=== PATIENT | male | born 1985 | race African-American/Black ===

== ENCOUNTER 2022-01-29 13:12 | Emergency (ER) | payer OTHER, MEDICAID ==
[~2022-01-29] VITALS: Ht 175.3 cm; Wt 85.0 kg
[~2022-01-29 13:12] MED LIST: ARIP20TA2 PO; ASPI-1406 PO; DOXE50CA4 PO; OLAN5TAB74 PO; OMEP20TA23 PO; QPAP PO
[2022-01-29] MEDS ORDERED: ASPIRIN 81MG TABLET PO ONE (15:45)
[2022-01-29] MEDS ORDERED: ACETAMINOPHEN 325MG TABLET PO ONE (15:45)
[2022-01-29] MEDS ORDERED: NITROGLYCERIN 0.4MG TABLET SL SL PRN (15:45)
[2022-01-29 16:19] LABS: BASOPHILS % 0.4 % (0.0-2.0); EOSINOPHILS % 2.9 % (0.0-5.0); HEMATOCRIT. 37.3 % (42.0-52.0); HEMOGLOBIN. 12.4 g/dL (14.0-18.0); LYMPHOCYTES % 28.8 % (20.0-50.0); MEAN CORPUSCULAR HEMOGLOBIN 30.1 pg (28.0-32.0); MEAN CORPUSCULAR VOLUME 90.9 fL (80.0-94.0); MEAN PLATELET VOLUME 7.5 fl (7.4-10.4); MONOCYTES % 7.5 % (2.0-8.0); NEUTROPHILS % 60.4 % (40.0-76.0); PLATELET 427 x1000/uL (130-400); RED BLOOD CELL COUNT 4.11 mill/uL (4.7-6.1); RED CELL DISTRIBUTION WIDTH 14.7 % (11.6-14.6)
[2022-01-29 16:27] LABS: CHLORIDE 105 mEq/L (98-107)
[2022-01-29 16:31] LABS: *AMPHETAMINES SCREEN URINE NEGATIVE (NEGATIVE); *BARBITURATES SCREEN URINE NEGATIVE (NEGATIVE); *BENZODIAZEPINES SCREEN URINE NEGATIVE (NEGATIVE); *COCAINE SCREEN URINE NEGATIVE (NEGATIVE); CANNABINOID URINE SCREEN NEGATIVE (NEGATIVE); METHADONE URINE SCREEN NEGATIVE (NEGATIVE); OPIATES URINE SCREEN NEGATIVE (NEGATIVE); PHENCYCLIDINE URINE SCREEN NEGATIVE (NEGATIVE)
[2022-01-29 16:38] LABS: ETHANOL BLOOD < 10 mg/dL
[2022-01-29 19:15] VITALS: BP 109/79
== END 2022-01-29 19:40 | disposition home or self-care (01) ==
LOC: ER 13:12
DX: R07.9 Chest pain, unspecified (principal); I11.9 Hypertensive heart disease without heart failure; E78.00 Pure hypercholesterolemia, unspecified; Z79.82 Long term (current) use of aspirin; Z87.891 Personal history of nicotine dependence
CPT/HCPCS: 36415; 71045; 73130; 80053; 80305; 80320; 83880; 84484; 85025; 87070; 87430; 93005; 99285; G0480

== ENCOUNTER 2022-03-19 00:48 | Inpatient (IN) | payer OTHER, MEDICAID ==
[~2022-03-19] VITALS: Ht 175.3 cm; Wt 77.1 kg
[2022-03-19] MEDS ORDERED: ACETAMINOPHEN 500MG TABLET PO ONE (01:30)
[2022-03-19] MEDS ORDERED: CYCLOBENZAPRINE 10MG TABLET PO ONE (01:30)
[2022-03-19 03:49] LABS: CHLORIDE 101 mEq/L (98-107)
[2022-03-19 03:53] LABS: BASOPHILS % 0.4 % (0.0-2.0); EOSINOPHILS % 0.4 % (0.0-5.0); HEMATOCRIT. 38.5 % (42.0-52.0); HEMOGLOBIN. 12.5 g/dL (14.0-18.0); LYMPHOCYTES % 15.6 % (20.0-50.0); MEAN CORPUSCULAR HEMOGLOBIN 29.8 pg (28.0-32.0); MEAN CORPUSCULAR VOLUME 91.7 fL (80.0-94.0); MEAN PLATELET VOLUME 8.4 fl (7.4-10.4); NEUTROPHILS % 74.6 % (40.0-76.0); PLATELET 392 x1000/uL (130-400); RED CELL DISTRIBUTION WIDTH 16.2 % (11.6-14.6)
[2022-03-19] MEDS ORDERED: ACETAMINOPHEN WITH CODEINE 300/30MG TABLET PO ONE (06:00)
[2022-03-19 08:33] VITALS: BP 117/78
[2022-03-19] MEDS ORDERED: NALOXONE HCL 0.4MG/ML VIAL IV PRN (10:30)
[2022-03-19] MEDS: HYDROCODONE/ACETAMINOPHEN 5/325MG TABLET PO PRN ×3 (10:36→22:11)
[2022-03-19 11:32] VITALS: BP 115/80
[2022-03-19] MEDS: ARIPIPRAZOLE 5MG TABLET PO SCH (12:49)
[2022-03-19] MEDS ORDERED: SODIUM BICARBONATE 4% (2.4MEQ) 5ML VIAL IV ONE (13:53)
[2022-03-19] MEDS ORDERED: LIDOCAINE HCL/PF 1% 10 MG/ML 5ML VIAL ONE (13:53)
[2022-03-19 15:30] VITALS: BP 121/81
[2022-03-19] MEDS: OLANZAPINE 5MG TABLET PO SCH (16:11)
[2022-03-19] MEDS ORDERED: CEFTRIAXONE 2 G PREMIX 50 ML IV SCH (16:45)
[2022-03-19] MEDS ORDERED: CEFTRIAXONE 2 G in DEXTROSE 5% WATER 50 ML IV SCH (18:00)
[2022-03-19 20:00] VITALS: BP 117/79
[2022-03-19] MEDS ORDERED: VANCOMYCIN 1500MG in DEXTROSE 5% WATER 250ML IV NR (20:00)
[2022-03-19] MEDS: CEFTRIAXONE 2 G in DEXTROSE 5% WATER 50 ML IV SCH (22:10)
[2022-03-20] VITALS: BP 115/66
[2022-03-20 04:00] VITALS: BP 143/86
[2022-03-20] MEDS ORDERED: VANCOMYCIN 1GM PMX (XELLIA) 200 ML IV SCH (06:00)
[2022-03-20 06:29] LABS: BASOPHILS % 0.3 % (0.0-2.0); HEMATOCRIT. 35.2 % (42.0-52.0); HEMOGLOBIN. 11.9 g/dL (14.0-18.0); LYMPHOCYTES % 10.9 % (20.0-50.0); MEAN CORPUSCULAR HEMOGLOBIN 30.3 pg (28.0-32.0); MEAN CORPUSCULAR VOLUME 89.5 fL (80.0-94.0); MONOCYTES % 7.2 % (2.0-8.0); NEUTROPHILS % 80.6 % (40.0-76.0); PLATELET 426 x1000/uL (130-400); RED BLOOD CELL COUNT 3.93 mill/uL (4.7-6.1); RED CELL DISTRIBUTION WIDTH 16.1 % (11.6-14.6)
[2022-03-20 07:18] LABS: CHLORIDE 97 mEq/L (98-107)
[2022-03-20 07:32] LABS: CREATINE KINASE 44 IU/L (39-308)
[2022-03-20 08:00] VITALS: BP 113/67
[2022-03-20] MEDS: ARIPIPRAZOLE 5MG TABLET PO SCH (09:43)
[2022-03-20] MEDS: VANCOMYCIN 1.25GM PMX (XELLIA) 250 ML IV SCH ×2 (11:04→22:57)
[2022-03-20] MEDS ORDERED: KETOROLAC 15MG/ML VIAL IV PRN (11:45)
[2022-03-20 12:00] VITALS: BP 121/79
[2022-03-20 16:00] VITALS: BP 109/74
[2022-03-20] MEDS: OLANZAPINE 5MG TABLET PO SCH (16:42)
[2022-03-20] MEDS: HYDROCODONE/ACETAMINOPHEN 5/325MG TABLET PO PRN (18:52)
[2022-03-21] MEDS: CEFTRIAXONE 2 G in DEXTROSE 5% WATER 50 ML IV SCH ×2 (00:29→23:03)
[2022-03-21] MEDS: HYDROCODONE/ACETAMINOPHEN 5/325MG TABLET PO PRN ×2 (00:29→08:53)
[2022-03-21 04:00] VITALS: BP 99/57
[2022-03-21 08:00] VITALS: BP 119/71
[2022-03-21 08:42] LABS: BASOPHILS % 0.5 % (0.0-2.0); EOSINOPHILS % 1.7 % (0.0-5.0); HEMATOCRIT. 32.7 % (42.0-52.0); HEMOGLOBIN. 10.8 g/dL (14.0-18.0); LYMPHOCYTES % 11.9 % (20.0-50.0); MEAN CORPUSCULAR HEMOGLOBIN 29.7 pg (28.0-32.0); MEAN CORPUSCULAR VOLUME 89.6 fL (80.0-94.0); MONOCYTES % 8.8 % (2.0-8.0); NEUTROPHILS % 77.1 % (40.0-76.0); PLATELET 475 x1000/uL (130-400); RED BLOOD CELL COUNT 3.65 mill/uL (4.7-6.1)
[2022-03-21] MEDS: ARIPIPRAZOLE 5MG TABLET PO SCH (08:52)
[2022-03-21] MEDS: VANCOMYCIN 1.25GM PMX (XELLIA) 250 ML IV SCH (08:53)
[2022-03-21 09:24] LABS: CHLORIDE 101 mEq/L (98-107)
[2022-03-21 12:00] VITALS: BP 116/73
[2022-03-21 16:00] VITALS: BP 116/73
[2022-03-21] MEDS: OLANZAPINE 5MG TABLET PO SCH (18:35)
[2022-03-21 20:00] VITALS: BP 112/71
[2022-03-21] MEDS: COLCHICINE 0.6MG TABLET PO SCH (23:00)
[2022-03-21] MEDS: VANCOMYCIN 1G PREMIX 200 ML IV SCH (23:26)
[2022-03-22] VITALS: BP 118/73
[2022-03-22] MEDS: HYDROCODONE/ACETAMINOPHEN 5/325MG TABLET PO PRN (01:30)
[2022-03-22 04:00] VITALS: BP 118/76
[2022-03-22 08:00] VITALS: BP 142/66
[2022-03-22] MEDS: ARIPIPRAZOLE 5MG TABLET PO SCH (09:13)
[2022-03-22] MEDS: COLCHICINE 0.6MG TABLET PO SCH ×2 (09:13→20:55)
[2022-03-22] MEDS: NAPROXEN 500MG TABLET PO SCH ×2 (09:13→20:55)
[2022-03-22] MEDS: VANCOMYCIN 1G PREMIX 200 ML IV SCH ×2 (11:44→22:49)
[2022-03-22 12:00] VITALS: BP 109/61
[2022-03-22 16:00] VITALS: BP 96/62
[2022-03-22] MEDS: OLANZAPINE 5MG TABLET PO SCH (17:23)
[2022-03-22] MEDS: PREDNISONE 20MG TABLET PO SCH (17:23)
[2022-03-22 20:00] VITALS: BP 104/70
[2022-03-22] MEDS: CEFTRIAXONE 2 G in DEXTROSE 5% WATER 50 ML IV SCH (21:01)
[2022-03-23] VITALS: BP 100/70
[2022-03-23 04:00] VITALS: BP 91/54
[2022-03-23 07:10] LABS: CHLORIDE 102 mEq/L (98-107)
[2022-03-23 08:00] VITALS: BP 112/70
[2022-03-23] MEDS: NAPROXEN 500MG TABLET PO SCH ×2 (08:31→20:17)
[2022-03-23] MEDS: ARIPIPRAZOLE 5MG TABLET PO SCH (08:31)
[2022-03-23] MEDS: COLCHICINE 0.6MG TABLET PO SCH ×2 (08:32→20:17)
[2022-03-23] MEDS: PREDNISONE 20MG TABLET PO SCH (08:32)
[2022-03-23 12:00] VITALS: BP 129/70
[2022-03-23 16:00] VITALS: BP 117/78
[2022-03-23] MEDS: OLANZAPINE 5MG TABLET PO SCH (17:07)
[2022-03-23 20:00] VITALS: BP 98/65
[2022-03-23] MEDS: HYDROCODONE/ACETAMINOPHEN 5/325MG TABLET PO PRN (20:17)
[2022-03-24] VITALS: BP 101/65
[2022-03-24 04:00] VITALS: BP 95/50
[2022-03-24 07:11] LABS: CHLORIDE 103 mEq/L (98-107)
[2022-03-24 08:00] VITALS: BP 102/70
[2022-03-24] MEDS: PREDNISONE 20MG TABLET PO SCH (08:18)
[2022-03-24] MEDS: NAPROXEN 500MG TABLET PO SCH ×2 (08:18→21:00)
[2022-03-24] MEDS: ARIPIPRAZOLE 5MG TABLET PO SCH (08:18)
[2022-03-24] MEDS: COLCHICINE 0.6MG TABLET PO SCH ×2 (08:18→21:00)
[2022-03-24 12:00] VITALS: BP 108/67
[2022-03-24 16:00] VITALS: BP 102/66
[2022-03-24] MEDS: OLANZAPINE 5MG TABLET PO SCH (16:26)
[2022-03-24 20:00] VITALS: BP 99/56
[2022-03-25] VITALS: BP 101/60
[2022-03-25 04:00] VITALS: BP 106/70
[2022-03-25 07:23] LABS: BASOPHILS % 0.3 % (0.0-2.0); EOSINOPHILS % 0.3 % (0.0-5.0); HEMATOCRIT. 34.5 % (42.0-52.0); HEMOGLOBIN. 11.2 g/dL (14.0-18.0); LYMPHOCYTES % 24.4 % (20.0-50.0); MEAN CORPUSCULAR HEMOGLOBIN 29.7 pg (28.0-32.0); MEAN CORPUSCULAR VOLUME 91.2 fL (80.0-94.0); MEAN PLATELET VOLUME 7.7 fl (7.4-10.4); MONOCYTES % 5.1 % (2.0-8.0); NEUTROPHILS % 69.9 % (40.0-76.0); PLATELET 710 x1000/uL (130-400); RED BLOOD CELL COUNT 3.78 mill/uL (4.7-6.1); RED CELL DISTRIBUTION WIDTH 16.5 % (11.6-14.6)
[2022-03-25 07:26] LABS: CHLORIDE 108 mEq/L (98-107)
[2022-03-25 08:00] VITALS: BP 119/89
[2022-03-25] MEDS: PREDNISONE 20MG TABLET PO SCH (09:20)
[2022-03-25] MEDS: NAPROXEN 500MG TABLET PO SCH (09:20)
[2022-03-25] MEDS: ARIPIPRAZOLE 5MG TABLET PO SCH (09:20)
[2022-03-25] MEDS: COLCHICINE 0.6MG TABLET PO SCH (09:20)
[2022-03-25 12:00] VITALS: BP 107/69
[2022-03-25] MEDS ORDERED: P20 PO (15:13)
[2022-03-25] MEDS ORDERED: NAPR-681 PO (15:13)
[2022-03-25] MEDS ORDERED: COLC0.6C3 MT (15:14)
[2022-03-25 15:48] VITALS: BP 107/68
[2022-03-25] MEDS: OLANZAPINE 5MG TABLET PO SCH (16:31)
== END 2022-03-25 16:39 | disposition home or self-care (01) | DRG 554 ==
LOC: ER 00:48 → 8WST 06:46 → 6EST 03-20 17:02
PROVIDERS: ADMIT Internal Medicine; ATTEND Internal Medicine
PROC: 0S9D3ZZ Drainage of Left Knee Joint, Percutaneous Approach (ICD-10-PCS; principal; 2022-03-19)
DX: M06.4 Inflammatory polyarthropathy (principal); M10.9 Gout, unspecified; I11.0 Hypertensive heart disease with heart failure; Z20.822 Contact with and (suspected) exposure to COVID-19; I50.9 Heart failure, unspecified; N28.9 Disorder of kidney and ureter, unspecified; F32.A Depression, unspecified; G89.29 Other chronic pain
CPT/HCPCS: 20611; 36415; 76881; 80048; 80202; 82550; 83880; 84145; 84550; 85025; 85651; 86038; 86430; 86431; 87426; 93970; 97116; 97162; 97530; 99285; J0696; J1885; J3370; J3490; J7060; J7512

== ENCOUNTER 2023-10-01 18:54 | Inpatient (IN) | payer BC, MEDICAID ==
[~2023-10-01] VITALS: Ht 182.9 cm; Wt 74.9 kg
[~2023-10-01 18:54] MED LIST changes: +COLC0.6C3 MT; +NAPR-681 PO; +P20 PO
[2023-10-01 19:12] VITALS: O2SAT 100
[2023-10-01 19:50] LABS: BASOPHILS % 0.5 % (0.0-2.0); HEMATOCRIT. 40.5 % (42.0-52.0); HEMOGLOBIN. 13.3 g/dL (14.0-18.0); LYMPHOCYTES % 52.8 % (20.0-50.0); MEAN CORPUSCULAR HEMOGLOBIN 29.7 pg (28.0-32.0); MEAN CORPUSCULAR HGB CONC 32.9 g/dL (31.0-37.0); MEAN CORPUSCULAR VOLUME 90.1 fL (80.0-94.0); MEAN PLATELET VOLUME 8.1 fl (7.4-10.4); MONOCYTES % 6.1 % (2.0-8.0); NEUTROPHILS % 37.6 % (40.0-76.0); PLATELET 231 x1000/uL (130-400); RED BLOOD CELL COUNT 4.49 mill/uL (4.7-6.1); RED CELL DISTRIBUTION WIDTH 17.5 % (11.6-14.6); WHITE BLOOD COUNT 4.2 x1000/uL (4.5-11.0)
[2023-10-01 20:06] LABS: ALANINE AMINOTRANSFERASE 19 IU/L (10-49); ALBUMIN 4.2 g/dL (3.2-4.8); ASPARTATE AMINOTRANSFERASE 23 IU/L (<34); BILIRUBIN TOTAL 1.4 mg/dL (0.1-1.0); CALCIUM 9.3 mg/dL (8.7-10.4); CARBON DIOXIDE 28 mEq/L (21-32); CHLORIDE 109 mEq/L (98-107); CREATININE 1.4 mg/dL (0.6-1.3); GLUCOSE 99 mg/dL (70-105); POTASSIUM 4.1 mEq/L (3.5-5.1); PROTEIN TOTAL 7.3 g/dL (6.0-8.3); SODIUM 143 mEq/L (136-145); UREA NITROGEN BLOOD 17 mg/dL (9-23)
[2023-10-01 20:10] LABS: TROPONIN I HIGH SENSITIVITY 91 ng/L (3.0-53)
[2023-10-01] MEDS: SODIUM CHLORIDE 0.9% 1,000 ML IV ONE (21:30)
[2023-10-01] MEDS: LORAZEPAM 2MG/ML INJ IV ONE (21:31)
[2023-10-01] MEDS: ASPIRIN 81MG TABLET PO ONE (21:32)
[2023-10-01] MEDS: NITROGLYCERIN 0.4MG TABLET SL SL PRN (21:33)
[2023-10-02] VITALS (7 sets, daily range): BP systolic 89–116; BP diastolic 57–85; PULSE 51–96; RESP 18–19; TEMP 97–98.2
[2023-10-02 01:44] LABS: CLARITY URINE CLEAR (CLEAR); COLOR URINE YELLOW (YELLOW); GLUCOSE URINE NEGATIVE (NEGATIVE); KETONES URINE NEGATIVE (NEGATIVE); LEUKOCYTE ESTERASE URINE NEGATIVE (NEGATIVE); NITRITE URINE NEGATIVE (NEGATIVE); OCCULT BLOOD URINE NEGATIVE (NEGATIVE); PH URINE 7.5 (4.5-8.0); PROTEIN URINE NEGATIVE (NEGATIVE); SPECIFIC GRAVITY URINE 1.012 (1.005-1.030); UROBILINOGEN URINE 0.2 E.U./dL (0.2-1.0)
[2023-10-02 01:52] LABS: *AMPHETAMINES SCREEN URINE NEGATIVE (NEGATIVE); *BARBITURATES SCREEN URINE NEGATIVE (NEGATIVE); *BENZODIAZEPINES SCREEN URINE NEGATIVE (NEGATIVE); *COCAINE SCREEN URINE NEGATIVE (NEGATIVE); CANNABINOID URINE SCREEN NEGATIVE (NEGATIVE); ECSTASY MDMA SCREEN URINE NEGATIVE (NEGATIVE); METHADONE URINE SCREEN Neg (NEGATIVE); OPIATES URINE SCREEN NEGATIVE (NEGATIVE); PHENCYCLIDINE URINE SCREEN NEGATIVE (NEGATIVE)
[2023-10-02] MEDS ORDERED: NALOXONE HCL 0.4MG/ML VIAL IV PRN (03:00)
[2023-10-02] MEDS: HYDROCODONE/ACETAMINOPHEN 5/325MG TABLET PO PRN (03:11)
[2023-10-02] MEDS ORDERED: ATOR20TA65 PO (05:31)
[2023-10-02 07:22] LABS: BASOPHILS % 0.4 % (0.0-2.0); DIFFERENTIAL COMMENT 0; EOSINOPHILS % 3.2 % (0.0-5.0); HEMATOCRIT. 35.2 % (42.0-52.0); HEMOGLOBIN. 11.8 g/dL (14.0-18.0); LYMPHOCYTES % 51.7 % (20.0-50.0); MEAN CORPUSCULAR HEMOGLOBIN 29.8 pg (28.0-32.0); MEAN CORPUSCULAR HGB CONC 33.5 g/dL (31.0-37.0); MEAN CORPUSCULAR VOLUME 88.8 fL (80.0-94.0); MEAN PLATELET VOLUME 8.6 fl (7.4-10.4); NEUTROPHILS % 37.7 % (40.0-76.0); PLATELET 174 x1000/uL (130-400); RED BLOOD CELL COUNT 3.96 mill/uL (4.7-6.1); RED CELL DISTRIBUTION WIDTH 17.6 % (11.6-14.6); WHITE BLOOD COUNT 3.8 x1000/uL (4.5-11.0)
[2023-10-02 07:58] LABS: CALCIUM 8.4 mg/dL (8.7-10.4); CARBON DIOXIDE 27 mEq/L (21-32); CHLORIDE 111 mEq/L (98-107); CHOLESTEROL 137 mg/dL (<200); CREATININE 1.2 mg/dL (0.6-1.3); GLUCOSE 116 mg/dL (70-105); HDL CHOLESTEROL 65 mg/dL (>55); LDL CHOLESTEROL 58 mg/dL (5-100); SODIUM 142 mEq/L (136-145); TRIGLYCERIDE 36 mg/dL (0-150); UREA NITROGEN BLOOD 14 mg/dL (9-23)
[2023-10-02] MEDS ORDERED: ACETAMINOPHEN 325MG TABLET PO PRN (08:30)
[2023-10-02] MEDS ORDERED: ONDANSETRON HCL 4MG/2ML INJ IV PRN (08:30)
[2023-10-02] MEDS: ASPIRIN 81MG TABLET PO SCH (08:44)
[2023-10-02] MEDS: METOPROLOL TARTRATE 25MG TABLET PO SCH (08:44)
[2023-10-02] MEDS ORDERED: MAGNESIUM/ALUMINUM HYDROXIDE/SIMETHICONE 30ML UDC PO PRN (09:00)
[2023-10-02] MEDS ORDERED: CLONIDINE 0.1MG TABLET PO PRN (09:00)
[2023-10-02 09:02] LABS: TROPONIN I HIGH SENSITIVITY 79 ng/L (3.0-53)
[2023-10-02] MEDS: ENOXAPARIN 40MG/0.4ML SYR SUBCUT SCH (10:37)
[2023-10-02 14:56] LABS: HEPATITIS B SURFACE ANTIGEN NEGATIVE (Negative); HEPATITIS C AB NON REACTIVE (Neg) (Negative)
[2023-10-02] MEDS: ARIPIPRAZOLE 5MG TABLET PO SCH (21:06)
[2023-10-02] MEDS: ATORVASTATIN CALCIUM 20MG TABLET PO SCH (21:06)
[2023-10-08] MEDS ORDERED: QUET100T34 PO (02:16)
[2023-10-08] MEDS ORDERED: LORA-250 (02:16)
== END 2023-10-02 22:45 | disposition left against medical advice (07) | DRG 281 ==
LOC: ER 18:54 → 8WST 22:20 → EDBEDREQ 22:23
PROVIDERS: ADMIT Internal Medicine; ATTEND Internal Medicine
DX: I21.3 ST elevation (STEMI) myocardial infarction of unspecified site (principal); I45.2 Bifascicular block; N17.9 Acute kidney failure, unspecified; I25.10 Atherosclerotic heart disease of native coronary artery without angina pectoris; I11.0 Hypertensive heart disease with heart failure; F41.9 Anxiety disorder, unspecified; F10.10 Alcohol abuse, uncomplicated; E78.5 Hyperlipidemia, unspecified; I50.9 Heart failure, unspecified; D64.9 Anemia, unspecified; F32.A Depression, unspecified
CPT/HCPCS: 36415; 71045; 80048; 80053; 80061; 80305; 81003; 82962; 84484; 85025; 86705; 87340; 93005; 93970; 99285; J1650; J2060; J7030

== ENCOUNTER 2023-10-03 14:54 | Emergency (ER) | payer BC, MEDICAID ==
[~2023-10-03] VITALS: Ht 182.9 cm; Wt 100.0 kg
[~2023-10-03 14:54] MED LIST changes: +ATOR20TA65 PO
[2023-10-03 15:15] VITALS: BP 120/74; PULSE 90; RESP 12; TEMP 98.5; O2SAT 100
[2023-10-03] MEDS ORDERED: ASPIRIN 81MG TABLET PO ONE (15:30)
[2023-10-03] MEDS ORDERED: LORAZEPAM 2MG/ML INJ IV ONE (15:30)
[2023-10-03] MEDS ORDERED: NITROGLYCERIN OINT 1GM/INCH UDPKT TD ONE (15:30)
[2023-10-03 16:25] LABS: BASOPHILS % 0.6 % (0.0-2.0); DIFFERENTIAL COMMENT 0; EOSINOPHILS % 3.4 % (0.0-5.0); HEMATOCRIT. 38.2 % (42.0-52.0); HEMOGLOBIN. 13.3 g/dL (14.0-18.0); LYMPHOCYTES % 45.3 % (20.0-50.0); MEAN CORPUSCULAR HEMOGLOBIN 31.1 pg (28.0-32.0); MEAN CORPUSCULAR HGB CONC 34.8 g/dL (31.0-37.0); MEAN CORPUSCULAR VOLUME 89.3 fL (80.0-94.0); NEUTROPHILS % 44.7 % (40.0-76.0); PLATELET 247 x1000/uL (130-400); RED BLOOD CELL COUNT 4.28 mill/uL (4.7-6.1); WHITE BLOOD COUNT 3.6 x1000/uL (4.5-11.0)
[2023-10-03 16:40] LABS: ALANINE AMINOTRANSFERASE 18 IU/L (10-49); ALBUMIN 4.3 g/dL (3.2-4.8); ASPARTATE AMINOTRANSFERASE 22 IU/L (<34); BILIRUBIN TOTAL 0.9 mg/dL (0.1-1.0); CALCIUM 8.9 mg/dL (8.7-10.4); CARBON DIOXIDE 26 mEq/L (21-32); CHLORIDE 111 mEq/L (98-107); CREATININE 1.3 mg/dL (0.6-1.3); GLUCOSE 88 mg/dL (70-105); POTASSIUM 4.4 mEq/L (3.5-5.1); PROTEIN TOTAL 7.4 g/dL (6.0-8.3); SODIUM 144 mEq/L (136-145); UREA NITROGEN BLOOD 16 mg/dL (9-23)
[2023-10-03 17:06] LABS: TROPONIN I HIGH SENSITIVITY 98 ng/L (3.0-53)
[2023-10-08] MEDS ORDERED: QUET100T34 PO (02:16)
[2023-10-08] MEDS ORDERED: LORA-250 (02:16)
== END 2023-10-04 00:43 | disposition left against medical advice (07) ==
LOC: ER 14:54 → EDBEDREQ 18:20 → EDBEDREQTM 19:33 → EDBEDREQ 19:33 → CANBEDREQ 10-04 00:41 → ER 10-04 00:43
DX: I21.4 Non-ST elevation (NSTEMI) myocardial infarction (principal); F29 Unspecified psychosis not due to a substance or known physiological condition; I11.0 Hypertensive heart disease with heart failure; I50.9 Heart failure, unspecified; I25.2 Old myocardial infarction; Z79.899 Other long term (current) drug therapy
CPT/HCPCS: 36415; 71045; 80053; 83880; 84484; 85025; 93005; 99291

== ENCOUNTER 2023-10-06 12:50 | Emergency (ER) | payer BC, MEDICAID ==
[~2023-10-06] VITALS: Ht 170.2 cm; Wt 72.0 kg
[2023-10-06 13:09] VITALS: BP 133/81; PULSE 91; RESP 20; TEMP 98; O2SAT 99
[2023-10-06 13:38] LABS: BASOPHILS % 0.5 % (0.0-2.0); EOSINOPHILS % 2.5 % (0.0-5.0); HEMATOCRIT. 40.6 % (42.0-52.0); HEMOGLOBIN. 13.4 g/dL (14.0-18.0); LYMPHOCYTES % 44.4 % (20.0-50.0); MONOCYTES % 5.2 % (2.0-8.0); NEUTROPHILS % 47.4 % (40.0-76.0); PLATELET 263 x1000/uL (130-400); RED BLOOD CELL COUNT 4.46 mill/uL (4.7-6.1); RED CELL DISTRIBUTION WIDTH 17.6 % (11.6-14.6); WHITE BLOOD COUNT 3.3 x1000/uL (4.5-11.0)
[2023-10-06 13:56] LABS: ALANINE AMINOTRANSFERASE 17 IU/L (10-49); ALBUMIN 4.4 g/dL (3.2-4.8); ASPARTATE AMINOTRANSFERASE 24 IU/L (<34); BILIRUBIN TOTAL 1.3 mg/dL (0.1-1.0); CALCIUM 9.4 mg/dL (8.7-10.4); CARBON DIOXIDE 25 mEq/L (21-32); CHLORIDE 110 mEq/L (98-107); CREATININE 1.2 mg/dL (0.6-1.3); GLUCOSE 84 mg/dL (70-105); POTASSIUM 4.4 mEq/L (3.5-5.1); PROTEIN TOTAL 7.6 g/dL (6.0-8.3); SODIUM 140 mEq/L (136-145); UREA NITROGEN BLOOD 7 mg/dL (9-23)
[2023-10-06 14:06] LABS: TROPONIN I HIGH SENSITIVITY 384 ng/L (3.0-53)
[2023-10-08] MEDS ORDERED: LORA-250 (02:16)
[2023-10-08] MEDS ORDERED: QUET100T34 PO (02:16)
== END 2023-10-06 15:51 | disposition home or self-care (01) ==
LOC: ER 12:50
DX: R07.89 Other chest pain (principal); Z53.21 Procedure and treatment not carried out due to patient leaving prior to being seen by health care provider
CPT/HCPCS: 36415; 80053; 84484; 85025; 93005; 99281

== ENCOUNTER 2025-02-16 01:40 | Emergency (ER) | payer MEDICAID ==
[~2025-02-16] VITALS: Ht 162.6 cm; Wt 66.0 kg
[~2025-02-16 01:40] MED LIST changes: +LORA-250; +QUET100T34 PO
[2025-02-16 02:04] VITALS: O2SAT 98
[2025-02-16 03:25] LABS: CREATININE 1.4 mg/dL (0.6-1.3)
[2025-02-16 03:26] LABS: ETHANOL BLOOD < 10 mg/dL (<10); UREA NITROGEN BLOOD 16 mg/dL (9-23)
[2025-02-16 03:29] LABS: TROPONIN I HIGH SENSITIVITY 74 ng/L (3.0-53)
[2025-02-16] MEDS: ASPIRIN 325MG EC TABLET PO SCH (05:13)
[2025-02-16 07:09] VITALS: TEMP 36.6; O2SAT 96
[2025-02-16 07:19] VITALS: BP 106/74; PULSE 62; RESP 17; TEMP 97.9
[2025-02-16 07:29] LABS: BASOPHILS % 0.4 % (0.0-2.0); EOSINOPHILS % 9.0 % (0.0-5.0); HEMATOCRIT. 43.0 % (42.0-52.0); HEMOGLOBIN. 14.1 g/dL (14.0-18.0); LYMPHOCYTES % 52.3 % (20.0-50.0); MEAN PLATELET VOLUME 7.7 fl (7.4-10.4); MONOCYTES % 8.2 % (2.0-8.0); NEUTROPHILS % 30.1 % (40.0-76.0); PLATELET 253 x1000/uL (130-400); RED BLOOD CELL COUNT 4.64 mill/uL (4.7-6.1); RED CELL DISTRIBUTION WIDTH 14.4 % (11.6-14.6)
== END 2025-02-16 07:38 | disposition left against medical advice (07) ==
LOC: ER 03:20 → EDBEDREQTM 06:12 → EDBEDREQ 06:12 → ENRESERV 06:53 → ER 07:38 → CMPBEDREQ 13:09
DX: R07.89 Other chest pain (principal); I11.0 Hypertensive heart disease with heart failure; I50.9 Heart failure, unspecified; Z79.899 Other long term (current) drug therapy; Z98.890 Other specified postprocedural states; Z00.00 Encounter for general adult medical examination without abnormal findings
CPT/HCPCS: 36415; 71045; 80048; 80320; 83880; 84484; 85025; 93005; 99285; A4606; G0480